=== PATIENT | female | born 1965 | race Caucasian/White ===

== ENCOUNTER 2016-08-23 15:31 | Outpatient (RCR) | payer BC | END 2016-09-12 | LOC: M PT 15:31 | PROVIDERS: ATTEND Physician Assistant Surgical | DX: Z51.89 Encounter for other specified aftercare (principal); M54.12 Radiculopathy, cervical region ==

== ENCOUNTER → 2016-09-07 | Outpatient (CLI) | payer BC ==
[2016-09-07 18:31] LABS: ANION GAP 7 MEQ/L (8-16); BLOOD UREA NITROGEN 11 MG/DL (7-18); CALCIUM LEVEL 9.3 MG/DL (8.5-10.1); CARBON DIOXIDE LEVEL 31 MEQ/L (21-32); CHLORIDE LEVEL 101 MEQ/L (98-107); CREATININE FOR GFR 0.66 MG/DL (0.55-1.02); GLOMERULAR FILTRATION RATE > 60.0 (>58); GLUCOSE, FASTING 91 MG/DL (70-105); POTASSIUM SERUM 3.9 MEQ/L (3.5-5.1); SODIUM LEVEL 139 MEQ/L (136-145)
== END | disposition home or self-care (01) ==
LOC: M LAB 17:10
PROVIDERS: ATTEND Family Medicine
DX: R10.9 Unspecified abdominal pain (principal)

== ENCOUNTER → 2016-09-14 | Outpatient (CLI) | payer BC ==
--- NOTE | 2016-09-15 03:48 | REP ---
Clinical: Flank pain. Technique: Real time melendez scale ultrasound examination of the kidneys using curved array transducer. Findings: Bilateral kidneys are normal in contour, size, echogenicity, and reniform shape without hydronephrosis, nephrolithiasis, cystic or renal mass lesions. No perinephric fluid collections are identified. Right kidney measures 11.5 x 5.0 x 4.7 cm. Left kidney measures 10.6 x 4.5 x 5.4 cm. Impression: Normal bilateral kidneys. No evidence for nephrolithiasis or hydronephrosis. Signed by Yaw Rouse MD 09/15/2016 03:39 A
--- NOTE | 2016-09-15 04:23 | REP ---
Clinical: Midline epigastric pain. Technique: Real time melendez scale evaluation using high frequency transducer. Findings: Directed ultrasound examination of the epigastric region demonstrates no obvious ventral hernia. No fluid collection or mass lesion noted. Impression: Unremarkable examination without evidence for ventral hernia. Signed by Yaw Rouse MD 09/15/2016 04:15 A
== END | disposition home or self-care (01) ==
LOC: M RAD 15:59
PROVIDERS: ATTEND Family Medicine
DX: R10.9 Unspecified abdominal pain (principal)

== ENCOUNTER 2016-09-27 14:42 | Outpatient (RCR) | payer BC | END 2016-10-10 | LOC: M PT 14:42 | PROVIDERS: ATTEND Physician Assistant Surgical | DX: Z51.89 Encounter for other specified aftercare (principal); M54.12 Radiculopathy, cervical region ==

== ENCOUNTER 2016-11-07 09:06 | Outpatient (RCR) | payer BC ==
[2016-11-11] MEDS ORDERED: HYDR25TAB PO (03:53)
[2016-11-11] MEDS ORDERED: AMLO5TAB2 PO (03:53)
[2016-11-11] MEDS ORDERED: ROBA750T4 PO (03:53)
[2016-11-11] MEDS ORDERED: LABE10TAB PO (03:53)
[2016-11-11] MEDS ORDERED: MELO15TA4 PO (03:53)
== END 2016-11-10 ==
LOC: M PT 09:06
PROVIDERS: ATTEND Physician Assistant Surgical
DX: Z51.89 Encounter for other specified aftercare (principal); M54.12 Radiculopathy, cervical region

== ENCOUNTER → 2016-11-09 | Outpatient (CLI) | payer BC ==
[~2016-11-09] MED LIST: AMLO5TAB2 PO; HYDR25TAB PO; LABE10TAB PO; MELO15TA4 PO; ROBA750T4 PO
--- NOTE | 2016-11-22 01:26 | ECWPNPC ---
PATIENT NAME: CJ COLINDRES : 1965 GENDER: FEMALE VISIT DATE: 11/09/2016 DISCHARGE DATE: 11/09/16 1638 VISIT LOCKED DATE TIME: PHYSICIAN: WENDY MANLEY RESOURCE: WENDY MANLEY REASON FOR APPOINTMENT 1. NECK/BACK HISTORY OF PRESENT ILLNESS FALL RISK SCREENING: SCREENING :NO FALLS IN THE PAST YEAR 51 Y/O FEMALE HERE PER REFERRAL OF ORTHOPEDICS IN [place].TWO YEAR HX OF LOW BACK PAIN.DENIES PRECIPITATING EVENT.NECK PAIN BEGAN IN MAY 2016.REPORTS INTERMITTENT RIGHT LEG PAIN.REPORTS INTERMITTENT BILAT.ARM PAIN AND NUMBNESS LEFT GREATER THAN RIGHT.CURRENTLY USING ROBAXIN 750MG Q6H PRN FOR SEVERE SANTIAGO THAT IS HELPFUL.ALSO USING MELOXICAM 15MG PRN .PAIN IS AGGREVATED BY LIFTING AND STANDING.PAIN IS RELIEVED SOMEWHAT WITH LAYING DOWN AND MEDICATION.CURRENTLY ATTENDING PT FOR UPPER BACK THAT IS HELPFUL.DENIES RECENT FEVER,ILLNESS OR WEIGHT GAIN/LOSS.DENIES BOWEL OR BLADDER INCONTINENCE.RATING PAIN VAS 7/10. PAIN SCREENING: PATIENT HAS A COMPLAINT OF ACUTE OR CHRONIC PAIN :YES CURRENT MEDICATIONS TAKING METHOCARBAMOL 750 MG TABLET 1 TABLET ORALLY EVERY 6 HRS TAKING LABETALOL HCL 100 MG TABLET 1 TAB ORALLY TWICE DAILY, NOTES: [facility] TAKING AMLODIPINE BESYLATE 5 MG TABLET 1 TABLET ORALLY ONCE A DAY TAKING HYDROCHLOROTHIAZIDE 25 MG TABLET 1 TABLET ORALLY ONCE A DAY TAKING MELOXICAM 15 MG TABLET 1 TABLET ORALLY ONCE A DAY DISCONTINUED HYDROCODONE-ACETAMINOPHEN 5-325 MG TABLET 1 TABLET NEEDED ORALLY EVERY 6 HRS DISCONTINUED DIAZEPAM 5 MG TABLET (SCHEDULE IV DRUG) TAKE ONE TABLET BY MOUTH EVERY 8 HOURS NEEDED FOR MUSCLE SPASM FOR UP TO 5 DOSES MAXIMUM DAILY DOSE 3 TABLETS ORAL DISCONTINUED ZOFRAN ODT 4 MG TABLET DISPERSIBLE 1 TABLET ON THE TONGUE AND ALLOW TO DISSOLVE ORALLY EVERY 8 HRS MEDICATION LIST REVIEWED AND RECONCILED WITH THE PATIENT PAST MEDICAL HISTORY HYPERTENSION GERD ARTHRITIS DEGENERATIVE DISC DISEASE LOWER LUMBAR GALL STONES ALLERGIES N.K.D.A. SURGICAL HISTORY 1998, 1990 APPENDECTOMY, LAPOROSCOPY ? TUBAL LIGATION, LYSIS OF ADHESIONS 2000 BOWEL OBSTRUCTION 1991 FAMILY HISTORY FATHER: ALIVE, STROKE, DIAGNOSED WITH STROKE MOTHER: ALIVE 2 BROTHER(S) - HEALTHY. 3 SON(S) , 4 DAUGHTER(S) - HEALTHY. SOCIAL HISTORY GENERAL: TOBACCO USE ARE YOU A:NONSMOKER BMI CARE GOAL FOLLOW-UP ABOVE NORMAL BMI FOLLOW-UPGIVING ENCOURAGEMENT TO EXERCISE ALCOHOL SCREENING DID YOU HAVE A DRINK CONTAINING ALCOHOL IN THE PAST YEAR?NO POINTS0 INTERPRETATIONNEGATIVE RECREATIONAL DRUG USE DENIES. CAFFEINE 1-2/DAY SODA. HIV / HEP-C SCREENING HIV TEST OFFERED TO PATIENT:YES DATE OFFERED:08/08/2016 TEST ACCEPTED:NO HEP-C TEST OFFERED TO PATIENT:YES DATE OFFERED:08/08/2016 REASON:PATIENT DECLINED TEST ACCEPTED:NO REASON:PATIENT DECLINED OCCUPATION: WORKS AT [employer]. DIET: REGULAR. CHEONDOISM NO SCIENTOLOGY BELIEFS THAT WOULD IMPACT HEALTH CARE. LANGUAGE HUNGARIAN. LEARNING BARRIERS / SPECIAL NEEDS BARRIERS TO LEARNING?NO HEARING IMPAIRED?NO VISION IMPAIRED?YES COGNITIVELY IMPAIRED?NO :CORRECTIVE LENSES READINESS TO LEARN?YES LEARNING PREFERENCES?NO LEARNING CAPABILITIES PRESENT?YES EMOTIONAL BARRIERS?NO ADVANCED DIRECTIVES HEALTH CARE PROXY? LORI HARTMAN [phone] HOSPITALIZATION/MAJOR DIAGNOSTIC PROCEDURE SURGERIES CHILDBIRTH REVIEW OF SYSTEMS CONSTITUTIONAL: RECENT ILLNESS DENIES . ANY CHANGE IN YOUR MEDICAL CONDITION? NO . CHILLS NO . FEVER NO, DENIES . WEIGHT LOSS DENIES . INFECTION: DO YOU HAVE NEW INFECTIONS? NO . DO YOU HAVE HISTORY OF MRSA? NO . MUSCULOSKELETAL: ANY NEW PATTERNS OF PAIN OR NUMBNESS? YES PT HAS HAD PAIN IN BACK FOR SEVERAL YEARS, HAD EPISODE IN 07/28 WHERE SHE COULD NOT LIFT YOUR ARM. NOW REPORTS INCREASING GENERAL PAIN/ MUSCLE SPASMS IN BACK. 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 . SYTEMIC LUPUS NO . JOINT PAIN DENIES . JOINT STIFFNESS DENIES . GASTROENTEROLOGY: BOWEL INCONTINENCE DENIES . ANY NEW CHANGE IN BOWEL CONTROL? NO . BARRETTS ESOPHAGUS NO . CIRRHOSIS NO . HEPATITIS NO . LIVER FAILURE NO . ACID REFLUX YES . BLOOD IN STOOL DENIES . UNEXPLAINED WEIGHT LOSS NO . GENITOURINARY: ANY NEW CHANGE IN BLADDER CONTROL? NO . IS THERE A CHANCE YOU COULD BE ? NO . HEMATOLOGY/LYMPH: DENIES . BLEEDING DISORDER DENIES . DO YOU TAKE ANY BLOOD THINNERS? (FOR EXAMPLE- COUMADIN, PLAVIX, AGGRENOX, PLATEL, PRADAXA, OR XARELTO) NO . WHEN WAS YOUR LAST DOSE? DATE: TIME: . LOW PLATELET COUNT NO . SICKLE CELL DISEASE NO . VON WILLIEBRANDS NO . FACTOR V LEIDEN NO . THALLASEMIA NO . ANEMIA NO . EASY BRUISING NO . NEUROLOGY: HAVE YOU FALLEN IN THE PAST 6 MONTHS? NO . ANY NEW EXTREMITY NUMBNESS OR WEAKNESS? NO . HEAD INJURY NO . DEMENTIA NO . CEREBRAL PALSY NO . MULTIPLE SCLEROSIS NO . DIZZINESS PT HAD EPISODE, SHE HAD TO CONVEYOR MAN WHILE DRIVING DUE TO SUDDEN BLURRY VISION, LASTED ABOUT 1 MINUTE, RESOLVED SPONTANEOUSLY . HEADACHE NO, DENIES . SEIZURES DENIES . STROKES NO . VERTIGO NO . CARDIOLOGY: DO YOU HAVE A PACEMAKER OR DEFIBRILLATOR? NO . ANGINA NO . HEART ATTACK NO . HEART SURGERY NO . CONGESTIVE HEART FAILURE/FLUID OVERLOAD NO . CHEST PAIN NO, DENIES . HIGH BLOOD PRESSURE ON MEDICATION(S) . IRREGULAR HEART BEAT NO . SHORTNESS OF BREATH DENIES . RESPIRATORY: HAVE YOU BEEN SICK IN THE PAST WEEK? NO . FEVER NO . FLU LIKE SYMPTOMS? NO . CPAP PT REPORTS SHE HAS BEEN TOLD SHE HAS BREATHING PAUSES WHILE SHE SLEEPS, WAS SCHEDULED TO HAVE A SLEEP STUDY DONE, BUT COULDN'T HAVE IT DONE BECAUSE OF INSURANCE&NBSP;. BYPAP &NBSP;&NBSP; NO&NBSP;. ASTHMA &NBSP;&NBSP; NO&NBSP;. EMPHYSEMA &NBSP;&NBSP; NO&NBSP;. CHRONIC LUNG DISEASES &NBSP;&NBSP; NO&NBSP;. SHORTNESS OF BREATH ON EXERTION &NBSP;&NBSP; NO&NBSP;. COUGH &NBSP;&NBSP; NO, DENIES&NBSP;. SHORTNESS OF BREATH &NBSP;&NBSP; DENIES&NBSP;. SNORING &NBSP;&NBSP; YES&NBSP;. INTEGUMENTARY: DO YOU HAVE ANY RASHES OR OPEN SORES? NO . ALLERGIC/IMMUNO: ARE YOU ALLERGIC TO SHELLFISH OR IV DYE? NO . ANY NEW ALLERGIES? NO . PSYCHIATRIC: DO YOU HAVE THOUGHTS OF HURTING YOURSELF OR SOMEONE ELSE? NO . ARE YOU ABUSED, NEGLECTED, OR IN AN UNSAFE ENVIRONMENT? NO . ENDOCRINOLOGY: THYROID DISEASE DENIES . ARE YOU DIABETIC? NO . DIABETES DENIES . THYROID DISORDER NO . OTHER: DO YOU NEED ANY PRESCRIPTIONS? NO . IF YES, PLEASE LIST: ____ . ANY NEW PROBLEMS WITH YOUR MEDICATIONS? NO . WHEN DID YOU LAST EAT? ____ . WHEN DID YOU LAST DRINK? ____ . WHAT DID YOU LAST DRINK? ____ . NAME OF PERSON DRIVING YOU HOME? ____ . DO YOU HAVE ANY OTHER QUESTIONS OR CONCERNS NO . HEENT: CHANGE IN VISION DENIES . LOSS OF HEARING DENIES . TROUBLE SWALLOWING DENIES . PSYCHOLOGY: ANXIETY DENIES . DEPRESSION DENIES . UROLOGY: URINARY INCONTINENCE DENIES . BLOOD IN URINE DENIES . REVIEWED BY: PROVIDER: WENDY LIN . VITAL SIGNS WT 245.8 LBS, HT 61 IN, BMI 46.44 INDEX, BP 139/85 MM HG, HR 76 /MIN, RR 18 /MIN, TEMP 97.9 F, OXYGEN SAT % 95%, SAFE IN ENV? (Y/N) YES, NA INITIALS SC 15:47, REVIEWED BY: CYDNEY. EXAMINATION GENERAL EXAMINATION: HEENT:HEAD:, NORMOCEPHALIC, EYES:, EYES NORMAL, NOSE:, NOSE CLEAR, THROAT: NORMAL. LUNGS:LUNG SOUNDS ARE CLEAR. HEART:HEART RATE REGULAR. ABDOMEN:SOFT AND NOT TENDER, NON-DISTENDED. MUSCULOSKELETAL:*. LUMBAR SACRAL SPINEMUSCLE STRENGTH TESTING 5/5 BLE. +FOR PAIN OVER L/S SPINE. + FOR PAIN OVER L/S PARASPINALS. THORACIC SPINENEGATIVE FOR PAIN WITH PALPATION OF THORACIC SPINE. NEGATIVE FOR PAIN WITH PALPATION OF THORACIC PARASPINAL. CERVICALNEGATIVE FOR PAIN WITH PALPATION OF CERVICAL SPINE. NEGATIVE FOR PAIN WITH PALPATION OF CERVICAL PARASPINALS. NEGATIVE FOR PAIN WITH PALPATION OF TRAPEZIUS BILAT. SKIN:NORMAL, NO RASH. NEUROLOGIC EXAM:ALERT AND ORIENTED X 3, DTRS 1-2+ IN ALL 4 EXTREMITIES, DENIES UPPER EXTREMETIES SENSORY LOSS, DENIES LOWER EXTREMETIES SENSORY LOSS. ASSESSMENTS SACROILIAC JOINT PAIN - M53.3 (PRIMARY) CERVICALGIA - M54.2 LUMBAGO OF LUMBAR REGION WITH SCIATICA - M54.40 TREATMENT OTHERS START CYMBALTA CAPSULE DELAYED RELEASE PARTICLES, 30 MG, 1 CAPSULE, ORALLY, DAILY, 30 DAY(S), 30 CAPSULE, REFILLS 2 CLINICAL NOTES: CONTINUE PT, PATIENT WAS ADVISED TO START A WALKING PROGRAM TO STRENGTHEN LUMBAR PARASPINAL MUSCLES AND IMPROVE MOBILITY. THEY WERE ADVISED THAT THIS WILL IMPROVE WEIGHT LOSS AND ALSO DEPRESSION/FIBROMYALGIA SYMPTOMS. ADVISED TO WALK 10 MINUTES EVERY OTHER DAY ON A FLAT SURFACE. EMPHASIZED THE IMPORTANCE OF DOING THIS CONSISTANTLY AND NOT SPORATICALLY TO AVOID INJURY. STRONG ADVISED NOT TO DO MORE THAN 10 MINUTES EVERY OTHER DSY FOR THE FIRST 4 WEEKS.PATIENT CALLED OFFICE TODAY AND WANTS TO TRIAL CYMBALTA 30MG DSILY WE DISCUSSED AT CONSULT DOPPWICHS-[id number]. PROCEDURE CODES FA211 ESTABILISHED PATIENT [facility] CHARGE DISPOSITION & COMMUNICATION FOLLOW UP 6 WEEKS ELECTRONICALLY SIGNED BY RILEY MILLAN ON 11/20/2016 AT 05:54 PM EDT DISCLAIMER : THIS IS A VISIT SUMMARY EXTRACTED FROM THE [employer] CHART. IT IS NOT A COPY OF THE [employer] PROGRESS NOTE. ANTOINETTE
== END ==
LOC: M PAIN 15:20
PROVIDERS: ATTEND Nurse Practitioner Family
DX: Z09 Encounter for follow-up examination after completed treatment for conditions other than malignant neoplasm (principal); M53.3 Sacrococcygeal disorders, not elsewhere classified; M54.2 Cervicalgia; M54.40 Lumbago with sciatica, unspecified side; I10 Essential (primary) hypertension; K21.9 Gastro-esophageal reflux disease without esophagitis; M19.90 Unspecified osteoarthritis, unspecified site; M51.36 Other intervertebral disc degeneration, lumbar region; Z87.19 Personal history of other diseases of the digestive system; Z79.899 Other long term (current) drug therapy; Z79.1 Long term (current) use of non-steroidal anti-inflammatories (NSAID)

== ENCOUNTER 2017-01-16 18:29 | Emergency (ER) | payer BC ==
[~2017-01-16] VITALS: Ht 154.9 cm; Wt 106.6 kg
[2017-01-16] MEDS ORDERED: PRED20TA PO (19:56)
--- NOTE | 2017-01-16 20:00 | REPUSA ---
Clinical history: Pain, swelling. Findings: The right common femoral, superficial femoral, popliteal, and other deep venous structures compress normally and demonstrate normal color Doppler flow. Normal venous waveforms with augmentatio n are seen. Impression: No evidence of deep vein thrombosis in the right femoral popliteal venous system.
[2017-01-16 20:11] VITALS: BP 158/100
== END 2017-01-16 20:13 | disposition home or self-care (01) ==
LOC: M ED 19:09
DX: M54.31 Sciatica, right side (principal); M51.36 Other intervertebral disc degeneration, lumbar region; I10 Essential (primary) hypertension; Z79.899 Other long term (current) drug therapy

== ENCOUNTER → 2017-01-18 | Outpatient (CLI) | payer BC ==
[~2017-01-18] MED LIST changes: +PRED20TA PO
--- NOTE | 2017-01-19 02:03 | REP ---
Clinical: Pain. Technique: AP, lateral, bilateral oblique, and sunrise views of the right knee. Findings: Early advanced tricompartmental osteoarthritic degenerative changes are appreciated including diffuse cortical irregularity, osteophytosis, increased sclerosis along the posterior patellar margin, tibiofemoral and predominantly lateral patellofemoral joint space narrowing, and soft tissue swelling. No definite effusion. No acute fracture dislocation. Impression: Early advanced tricompartmental osteoarthritic degenerative changes. Signed by Yaw Rouse MD 01/19/2017 01:55 A
== END ==
LOC: M RAD 03:30
PROVIDERS: ATTEND Family Medicine
DX: M17.11 Unilateral primary osteoarthritis, right knee (principal)

== ENCOUNTER 2017-05-10 06:49 | Emergency (ER) | payer BC ==
[~2017-05-10] VITALS: Ht 154.9 cm; Wt 106.8 kg
[2017-05-10 07:50] LABS: BASO % 0.2 % (0.0-1.0); EOS # 0.2 10^3/uL (0.0-0.50); EOS % 1.7 % (0.0-3.0); IMMATURE GRANULOCYTE % 0.2 % (0-0); LYMPH # 2.4 10^3/uL (1.5-4.5); LYMPH % 25.1 % (24.0-44.0); MEAN CORPUSCULAR HGB CONC 34.3 g/dl (32.0-36.5); MEAN CORPUSCULAR VOLUME 87.4 fl (80.0-96.0); MONO # 0.9 10^3/uL (0.0-0.8); MONO % 9.6 % (0.0-5.0); NEUTROPHILS % 63.2 % (36.0-66.0); PLATELET COUNT, AUTOMATED 270 10^3/uL (150-450); RED CELL DISTRIBUTION WIDTH 12.5 % (11.5-14.5); WHITE BLOOD COUNT 9.5 10^3/uL (4.0-10.0)
--- NOTE | 2017-05-10 08:05 | REP ---
Portable chest, 07:20 a.m., AP view, patient sitting: Comparison is 11/11/2016. The lung dias are clear. The cardiac size is normal. The frances, mediastinum, and bony thorax are unremarkable. Impression: Negative portable chest. Signed by Alton Hutton MD 05/10/2017 07:57 A
[2017-05-10 08:25] LABS: ALBUMIN 3.7 GM/DL (3.2-5.2); ALBUMIN/GLOBULIN RATIO 0.93 (1.00-1.93); ALKALINE PHOSPHATASE 79 U/L (45-117); ALT/SGPT 25 U/L (12-78); ANION GAP 8 MEQ/L (8-16); AST/SGOT 13 U/L (15-37); BILIRUBIN,DIRECT 0.3 MG/DL (0.0-0.2); BILIRUBIN,TOTAL 0.9 MG/DL (0.2-1.0); BLOOD UREA NITROGEN 17 MG/DL (7-18); CALCIUM LEVEL 9.2 MG/DL (8.5-10.1); CARBON DIOXIDE LEVEL 29 MEQ/L (21-32); CHLORIDE LEVEL 99 MEQ/L (98-107); CREATININE FOR GFR 0.69 MG/DL (0.55-1.02); GLOMERULAR FILTRATION RATE > 60.0 (>58); GLUCOSE, FASTING 93 MG/DL (70-105); POTASSIUM SERUM 3.6 MEQ/L (3.5-5.1); SODIUM LEVEL 136 MEQ/L (136-145); TOTAL PROTEIN 7.7 GM/DL (6.4-8.2)
[2017-05-10] MEDS ORDERED: ISOVUE-370 76% 100ML VIAL (Q9967) As Ordered ONE (08:36)
--- NOTE | 2017-05-10 09:51 | REP ---
CT ANGIOGRAM OF THE CHEST: TECHNIQUE: Axial contrast enhanced images from the thoracic inlet to the upper abdomen using 100 mL Isovue 370 intravenous contrast material with multiplanar reformations. COMPARISON: 06/28/2016. There is no CT evidence of pulmonary embolism. There is no thoracic aortic aneurysm or dissection. No mediastinal or hilar adenopathy is seen. The heart is not enlarged. There is no pleural or pericardial effusion. A couple of calcified granulomas are seen in the left lung. Minimal dependent atelectatic changes are seen in the lungs. In the visualized portions of the upper abdomen, a 3 cm gallstone is seen in the gallbladder. There are no other significant abnormalities. IMPRESSION: No CT evidence of pulmonary embolism or significant infiltrate. Gallstone in the gallbladder. Signed by Alton Lundberg MD 05/10/2017 07:50 P
--- NOTE | 2017-05-10 12:14 | REP ---
RIGHT UPPER QUADRANT ULTRASOUND: Real-time sonographic evaluation of the right upper quadrant performed. The gallbladder demonstrates a large stone without gallbladder wall thickening, pericholecystic fluid or intrahepatic or extrahepatic biliary dilatation. The common bile duct measures 6 mm. There is diffuse fibrofatty infiltration of the liver with no gross mass. The study is limited due to patient body habitus. The pancreas is not well seen. Right kidney demonstrates no hydronephrosis with normal size at 10.9 cm in length. IMPRESSION: Large gallstone in the gallbladder without gallbladder wall thickening, pericholecystic fluid or biliary dilatation. Diffuse fibrofatty infiltration of the liver. Signed by Alton Lundberg MD 05/10/2017 07:51 P
[2017-05-10 12:44] VITALS: BP 185/79
--- NOTE | 2017-05-10 20:45 | ECGEPIP ---
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
== END 2017-05-10 13:16 | disposition home or self-care (01) ==
LOC: EDBD 06:49 → M ED 06:49
DX: R10.9 Unspecified abdominal pain (principal); K80.20 Calculus of gallbladder without cholecystitis without obstruction; I10 Essential (primary) hypertension; Z87.19 Personal history of other diseases of the digestive system
CPT/HCPCS: 71010; 71275; 76705; 80048; 80076; 82550; 82553; 83690; 83880; 85025; 93005; 93041; 94760; 99285; Q9967

== ENCOUNTER 2017-07-20 07:53 | Day surgery (SDC) | payer BC ==
[~2017-07-20] VITALS: Ht 154.9 cm; Wt 108.0 kg
[2017-07-20] VITALS (8 sets, daily range): BP systolic 114–177; BP diastolic 63–84
[~2017-07-20 07:53] MED LIST changes: +HYDR-3713 PO
[2017-07-20] MEDS ORDERED: LIDOCAINE 1% MDV 20ML VIAL SQ PRN (08:00)
[2017-07-20] MEDS ORDERED: LR 1,000 ML IV ONE (08:00)
[2017-07-20] MEDS ORDERED: ROCURONIUM BROMIDE 50 MG/5 ML VIAL As Ordered ONE (08:59)
[2017-07-20] MEDS ORDERED: fentaNYL 250 MCG/5 ML INJECTION (J3010) As Ordered ONE (08:59)
[2017-07-20] MEDS ORDERED: LIDOCAINE 2% INJ 100 MG/5 ML SDV (FOR ANES.) As Ordered ONE (08:59)
[2017-07-20] MEDS ORDERED: MIDAZOLAM INJ 2 MG/2 ML VIAL (J2250) As Ordered ONE (08:59)
[2017-07-20] MEDS ORDERED: PROPOFOL 200 MG/20 ML VIAL As Ordered ONE (08:59)
[2017-07-20] MEDS ORDERED: BUPIVACAINE/EPIN 0.5% 30 ML VIAL As Ordered ONE (09:15)
[2017-07-20] MEDS ORDERED: LABETALOL 100 MG TAB PO ONE (09:30)
[2017-07-20] MEDS ORDERED: dexameTHASONE 4 MG/ML 1ML VIAL (J1100) As Ordered ONE ×2 (10:03→10:05)
[2017-07-20] MEDS ORDERED: ONDANSETRON 4MG/2ML VIAL (J2405) As Ordered ONE ×2 (10:03→10:05)
[2017-07-20] MEDS ORDERED: GLYCOPYRROLATE INJ 0.2 MG/ML 2 ML VIAL As Ordered ONE (10:05)
[2017-07-20] MEDS ORDERED: KETOROLAC 60 MG/2 ML VIAL (J1885) As Ordered ONE (10:05)
[2017-07-20] MEDS: fentaNYL 100 MCG/2 ML INJECTION (J3010) IV PRN ×3 (11:00→11:55)
[2017-07-20] MEDS ORDERED: HYDROmorphone HCL 1 MG/ML SYRINGE (J1170) IV PRN ×2 (11:00→13:00)
[2017-07-20] MEDS ORDERED: ONDANSETRON 4MG/2ML VIAL (J2405) IV PRN ×2 (11:00→13:00)
[2017-07-20] MEDS ORDERED: PERCOCET 5MG/325MG TAB PO PRN ×2 (11:00→13:00)
[2017-07-20] MEDS ORDERED: LR 1,000 ML IV SCH ×2 (11:00→13:00)
[2017-07-20] MEDS ORDERED: METOCLOPRAMIDE INJ 10MG/2ML VIAL (J2765) As Ordered ONE (11:30)
[2017-07-20] MEDS ORDERED: METOCLOPRAMIDE INJ 10MG/2ML VIAL (J2765) IV PRN ×2 (11:45→13:00)
[2017-07-20] MEDS ORDERED: fentaNYL 100 MCG/2 ML INJECTION (J3010) IV PRN (13:00)
[2017-07-20] MEDS: NORCO, ANEXSIA 5/325MG TABLET (HYDROcodone/ACETAMINOPHEN) PO PRN (18:12)
[2017-07-21 02:00] VITALS: BP 124/67
[2017-07-21 06:00] VITALS: BP 127/69
[2017-07-21 10:00] VITALS: BP 120/67
[2017-07-21] MEDS: NORCO, ANEXSIA 5/325MG TABLET (HYDROcodone/ACETAMINOPHEN) PO PRN (10:18)
[2017-07-21 14:00] VITALS: BP 121/56
--- NOTE | 2017-07-23 07:28 | RO ---
DATE OF PROCEDURE: 07/20/2017 PREOPERATIVE DIAGNOSIS: Symptomatic cholelithiasis. POSTOPERATIVE DIAGNOSIS: Symptomatic cholelithiasis. PROCEDURE: Laparoscopic cholecystectomy. SURGEON: Alton Sheffield DO MANUFACTURING SYSTEMS ENGINEER: None. ANESTHESIA: General. ESTIMATED BLOOD LOSS: 5 mL. COMPLICATIONS: None. INDICATIONS FOR PROCEDURE: The patient is 52-year-old female who presents with signs and symptoms consistent with a symptomatic cholelithiasis. Recommendation was to proceed with laparoscopic possible open cholecystectomy. Risks and benefits of the procedure, not limited to but including bleeding, infection, hernia formation, damage to surrounding structures, and need for further surgery were discussed in detail with the patient. Informed consent was obtained and the procedure was planned. PROCEDURE: The patient was brought back to operating room 3. After sufficient sedation, the abdomen was sterilely prepped and draped. Next, a time out was done to confirm proper patient and proper procedure. Following that, a 5 mm incision was made in the left lower quadrant, Veress needle was inserted and the abdomen was insufflated to 15 mmHg. Next, the Veress needle was removed and a 5 mm OptiView port was used in left lower quadrant to gain access. Once the abdomen was examined, it was examined for adhesions since she had had multiple previous surgeries. There were adhesions in the midline abdomen inferior to umbilicus, nothing superior to that. So, another 5 mm port was placed superior to umbilicus in the midline followed by an 11 port subxiphoid, two 5 mm ports in the right upper quadrant. The fundus of the gallbladder was easily identified. It was grasped, elevated up towards the right shoulder. The cystic duct and cystic artery were carefully dissected free using a combination of blunt and sharp dissection. Once they were both clearly identified, they are both doubly clipped and cut. The gallbladder was then removed from gallbladder fossa using electrocautery. It was then brought out through the subxiphoid port site in a 10 mm EndoCatch bag. The abdomen was then examined one last time to confirm hemostasis. The skin incisions were closed with #4-0 Vicryl subcuticular sutures. The abdomen was then cleaned and dried. Steri-Strips, 4x4 and tape were applied thus ending procedure.
== END 2017-07-21 15:05 | disposition home or self-care (01) ==
LOC: M SDC 07:53 → M MS5PR 12:25 → M SDC 07-21 15:05
PROVIDERS: ATTEND Surgery
DX: K80.10 Calculus of gallbladder with chronic cholecystitis without obstruction (principal); I10 Essential (primary) hypertension; M48.00 Spinal stenosis, site unspecified; M12.9 Arthropathy, unspecified; M54.2 Cervicalgia; Z98.51 Tubal ligation status; Z79.899 Other long term (current) drug therapy
CPT/HCPCS: 47562; 88304; 96374; 96375; J0690; J1100; J1885; J2250; J2405; J2765; J3010

== ENCOUNTER 2017-08-08 07:05 | Day surgery (SDC) | payer BC ==
[2017-08-08] MEDS: NS 1,000 ML IV (07:15)
[2017-08-08] MEDS ORDERED: PROPOFOL 200 MG/20 ML VIAL As Ordered ×2 (07:20→08:00)
[2017-08-08] MEDS ORDERED: LIDOCAINE 2% INJ 100 MG/5 ML SDV (FOR ANES.) As Ordered (07:20)
[2017-08-08] MEDS ORDERED: ONDANSETRON 4MG/2ML VIAL (J2405) As Ordered (08:26)
[2017-08-08] MEDS ORDERED: METOCLOPRAMIDE INJ 10MG/2ML VIAL (J2765) As Ordered (08:26)
== END 2017-08-08 09:06 | disposition home or self-care (01) ==
LOC: M OPP 07:05
DX: Z12.11 Encounter for screening for malignant neoplasm of colon (principal); K64.0 First degree hemorrhoids; I10 Essential (primary) hypertension; R10.12 Left upper quadrant pain; M19.90 Unspecified osteoarthritis, unspecified site; M48.00 Spinal stenosis, site unspecified; M51.9 Unspecified thoracic, thoracolumbar and lumbosacral intervertebral disc disorder; Z87.19 Personal history of other diseases of the digestive system; Z79.899 Other long term (current) drug therapy
CPT/HCPCS: G0121

== ENCOUNTER 2017-11-08 10:52 | Emergency (ER) | payer OTHER, BC ==
[2017-11-08] MEDS: KETOROLAC 60 MG/2 ML VIAL (J1885) IM ×2 (12:00)
== END 2017-11-08 12:09 | disposition home or self-care (01) ==
LOC: M ED 10:52
DX: S39.012A Strain of muscle, fascia and tendon of lower back, initial encounter (principal); X50.9XXA Other and unspecified overexertion or strenuous movements or postures, initial encounter; Y92.89 Other specified places as the place of occurrence of the external cause; Y93.F9 Activity, other caregiving; Z79.899 Other long term (current) drug therapy
CPT/HCPCS: J1885

== ENCOUNTER → 2017-12-27 | Outpatient (CLI) | payer BC | LOC: M RAD 10:45 | DX: N95.0 Postmenopausal bleeding (principal) | CPT/HCPCS: 76856 ==

== ENCOUNTER 2018-03-15 11:24 | Day surgery (SDC) | payer BC ==
[~2018-03-15 11:24] MED LIST changes: -AMLO5TAB2 PO; -HYDR-3713 PO; -HYDR25TAB PO; +KETOROLAC 60 MG/2 ML VIAL (J1885) As Ordered; -LABE10TAB PO; +LIDOCAINE 2% INJ 100 MG/5 ML SDV (FOR ANES.) As Ordered; -MELO15TA4 PO; +MIDAZOLAM INJ 2 MG/2 ML VIAL (J2250) As Ordered; +ONDANSETRON 4MG/2ML VIAL (J2405) As Ordered; -PRED20TA PO; +PROPOFOL 200 MG/20 ML VIAL As Ordered; -ROBA750T4 PO; +dexameTHASONE 4 MG/ML 1ML VIAL (J1100) As Ordered; +fentaNYL 100 MCG/2 ML INJECTION (J3010) As Ordered
[2018-03-15] MEDS: LR 1,000 ML IV ×2 (12:21)
[2018-03-15 12:25] LABS: HEMOGLOBIN 15.2 g/dl (12.0-15.5); MEAN CORPUSCULAR HGB CONC 34.5 g/dl (32.0-36.5); MEAN CORPUSCULAR VOLUME 86.8 fl (80.0-96.0); PLATELET COUNT, AUTOMATED 267 10^3/uL (150-450); RED BLOOD COUNT 5.07 10^6/uL (4.00-5.40); RED CELL DISTRIBUTION WIDTH 12.9 % (11.5-14.5); WHITE BLOOD COUNT 8.4 10^3/uL (4.0-10.0)
[2018-03-15] MEDS ORDERED: LR 1,000 ML IV ×4 (13:45)
[2018-03-15] MEDS ORDERED: ACETAMINOPHEN 500 MG TAB PO ×2 (13:45)
[2018-03-15] MEDS ORDERED: fentaNYL 100 MCG/2 ML INJECTION (J3010) IV ×2 (13:45)
[2018-03-15] MEDS: ONDANSETRON 4MG/2ML VIAL (J2405) IV ×2 (13:50)
[2018-03-15] MEDS: PERCOCET 5MG/325MG TAB PO ×2 (13:51)
== END 2018-03-15 16:45 | disposition home or self-care (01) ==
LOC: M SDC 11:24
DX: N95.0 Postmenopausal bleeding (principal); I10 Essential (primary) hypertension; Z79.899 Other long term (current) drug therapy
CPT/HCPCS: 58558

== ENCOUNTER 2018-07-28 16:59 | Emergency (ER) | payer BC, OTHER ==
[~2018-07-28] VITALS: Ht 154.9 cm; Wt 107.7 kg
[~2018-07-28 16:59] MED LIST changes: +ACET1TAB55 PO; +AMLO5TAB6 PO; +HYDR-3713 PO; +HYDR25TAB PO; +IBUP-1022 PO; -KETOROLAC 60 MG/2 ML VIAL (J1885) As Ordered; +LABE10TAB PO; -LIDOCAINE 2% INJ 100 MG/5 ML SDV (FOR ANES.) As Ordered; +MELO15TA28 PO; -MIDAZOLAM INJ 2 MG/2 ML VIAL (J2250) As Ordered; -ONDANSETRON 4MG/2ML VIAL (J2405) As Ordered; +PRED20TA PO; -PROPOFOL 200 MG/20 ML VIAL As Ordered; +ROBA500T PO; +ROBA750T4 PO; -dexameTHASONE 4 MG/ML 1ML VIAL (J1100) As Ordered; -fentaNYL 100 MCG/2 ML INJECTION (J3010) As Ordered
[2018-07-28] MEDS ORDERED: KETOROLAC 30 MG/ML VIAL (J1885) IV ONE (17:30)
[2018-07-28] MEDS ORDERED: NS 1,000 ML IV ONE (17:30)
[2018-07-28 17:37] LABS: URINE PREG TEST NEGATIVE (NEGATIVE)
[2018-07-28 18:03] LABS: BASO % 0.5 % (0.0-1.0); EOS # 0.2 10^3/uL (0.0-0.50); HEMATOCRIT 43.8 % (36.0-47.0); HEMOGLOBIN 15.1 g/dl (12.0-15.5); LYMPH # 2.4 10^3/uL (1.5-4.5); LYMPH % 29.7 % (24.0-44.0); MEAN CORPUSCULAR HEMOGLOBIN 30.1 pg (27.0-33.0); MEAN CORPUSCULAR HGB CONC 34.5 g/dl (32.0-36.5); MEAN CORPUSCULAR VOLUME 87.3 fl (80.0-96.0); MONO # 0.8 10^3/uL (0.0-0.8); MONO % 9.8 % (0.0-5.0); NEUTROPHILS # 4.6 10^3/uL (1.8-7.7); NEUTROPHILS % 57.9 % (36.0-66.0); PLATELET COUNT, AUTOMATED 263 10^3/uL (150-450); RED BLOOD COUNT 5.02 10^6/uL (4.00-5.40); WHITE BLOOD COUNT 7.9 10^3/uL (4.0-10.0)
--- NOTE | 2018-07-28 18:19 | REPVR ---
EXAM: CT Abdomen and Pelvis Without Contrast EXAM DATE/TIME: 07/28/2018 5:32 PM CLINICAL HISTORY: 53 years old, female; Pain; Abdominal pain; Flank; Left; Additional info: L flank pain, dark urine TECHNIQUE: Axial computed tomography images of the abdomen and pelvis without contrast. All CT scans at this facility use at least one of these dose optimization techniques: automated exposure control; mA and/or kV adjustment per patient size (includes targeted exams where dose is matched to clinical indication); or iterative reconstruction. Coronal and sagittal reformatted images were created and reviewed. COMPARISON: US PELVIC NON-OB COMPLETE 12/27/2017 11:07 AM FINDINGS: Lower thorax: Calcified granuloma left lower lobe. ABDOMEN: Liver: Normal. No mass. Gallbladder and bile ducts: There has been a cholecystectomy. Pancreas: Normal. No ductal dilation. Spleen: Normal. No splenomegaly. Adrenals: Normal. No mass. Kidneys and ureters: Normal. No hydronephrosis. Stomach and bowel: Short segment focus of pericolonic inflammation in the left mid colon may be secondary to diverticulitis although there is a paucity of diverticuli the left colon. Other considerations would include short segment colitis. Umbilical hernia contains a loop of small bowel. No incarceration. Appendix: No evidence of appendicitis. PELVIS: Bladder: Unremarkable as visualized. Reproductive: Unremarkable as visualized. ABDOMEN and PELVIS: Intraperitoneal space: Normal. No free air. No significant fluid collection. Bones/joints: The spine demonstrates mild degenerative changes at multiple levels. Mild anterolisthesis of L5 on S1. Transitional vertebra at S1. Soft tissues: Unremarkable. Vasculature: The aorta demonstrates mild atherosclerotic calcification. Lymph nodes: Normal. No enlarged lymph nodes. IMPRESSION: 1. There has been a cholecystectomy. 2. Short segment focus of pericolonic inflammation in the left mid colon may be secondary to diverticulitis although there is a paucity of diverticuli the left colon. Other considerations would include short segment colitis. 3. Umbilical hernia contains a loop of small bowel. No incarceration. Electronically signed by: Isidoro Herr On 07/28/2018 18:19:11 PM
[2018-07-28 18:22] LABS: ALBUMIN 3.3 GM/DL (3.2-5.2); ALT/SGPT 28 U/L (12-78); BILIRUBIN,DIRECT 0.2 MG/DL (0.0-0.2); BILIRUBIN,TOTAL 0.7 MG/DL (0.2-1.0); BLOOD UREA NITROGEN 16 MG/DL (7-18); CALCIUM LEVEL 8.9 MG/DL (8.5-10.1); CARBON DIOXIDE LEVEL 31 MEQ/L (21-32); CHLORIDE LEVEL 102 MEQ/L (98-107); CREATININE FOR GFR 0.76 MG/DL (0.55-1.30); GLOMERULAR FILTRATION RATE > 60.0 (>51); GLUCOSE, FASTING 111 MG/DL (70-100); LIPASE 117 U/L (73-393); POTASSIUM SERUM 3.5 MEQ/L (3.5-5.1); SODIUM LEVEL 139 MEQ/L (136-145); TOTAL PROTEIN 8.1 GM/DL (6.4-8.2)
[2018-07-28] MEDS ORDERED: FLAG500T PO (19:10)
[2018-07-28] MEDS ORDERED: NORCOTAB PO (19:10)
[2018-07-28] MEDS ORDERED: CIPR-249 PO (19:10)
[2018-07-28] MEDS ORDERED: NORCO 5/325MG TABLET (BULK FOR ED) PO ONE (19:15)
[2018-07-28] MEDS ORDERED: metroNIDAZOLE (FLAGYL) 500 MG TAB PO ONE (19:15)
[2018-07-28] MEDS ORDERED: CIPROFLOXACIN 500 MG TAB PO ONE (19:15)
[2018-07-28 19:17] VITALS: BP 121/58
== END 2018-07-28 19:42 | disposition home or self-care (01) ==
LOC: M ED 16:59
DX: K57.32 Diverticulitis of large intestine without perforation or abscess without bleeding (principal); I10 Essential (primary) hypertension; Z87.440 Personal history of urinary (tract) infections; K42.0 Umbilical hernia with obstruction, without gangrene; Z79.899 Other long term (current) drug therapy
CPT/HCPCS: 74176; 80048; 80076; 81001; 83690; 84703; 85025; 96361; 96374; 99284; J1885

== ENCOUNTER 2018-09-04 04:59 | Emergency (ER) | payer BC, OTHER ==
[~2018-09-04] VITALS: Ht 154.9 cm; Wt 106.8 kg
[~2018-09-04 04:59] MED LIST changes: +CIPR-249 PO; +FLAG500T PO; +NORCOTAB PO
[2018-09-04] MEDS ORDERED: PERCOCET 5MG/325MG TAB PO ONE (06:15)
--- NOTE | 2018-09-04 06:56 | REPVR ---
EXAM: US Right Duplex Lower Extremity Veins, Limited EXAM DATE/TIME: 09/04/2018 6:39 AM CLINICAL HISTORY: 53 years old, female; Pain; Other: Knee; Additional info: Extremity pain TECHNIQUE: Real-time Duplex ultrasound of the Right Lower Extremity with 2-D melendez scale, color Doppler flow and spectral waveform analysis. Limited exam was focused on the right lower extremity veins. COMPARISON: US Duplex, Ext,LOWER veins,unilat 01/16/2017 7:28 PM FINDINGS: Right deep veins: Unremarkable. The common femoral, femoral, proximal profunda femoral and popliteal veins are patent without thrombus. Normal compressibility, augmentation response and Doppler waveforms. Right superficial veins: Unremarkable. Saphenofemoral junction is patent without thrombus. Soft tissues: Unremarkable. IMPRESSION: No acute findings. No evidence of deep vein thrombosis. Electronically signed by: Tyrese Vela On 09/04/2018 06:55:53 AM
[2018-09-04] MEDS ORDERED: NAPR-50 PO (07:02)
[2018-09-04] MEDS ORDERED: ROBA500T PO (07:02)
[2018-09-04] MEDS ORDERED: METHOCARBAMOL 750 MG TAB PO ONE (07:15)
[2018-09-04] MEDS ORDERED: NAPROXEN 250 MG TAB PO ONE (07:15)
[2018-09-04 08:48] VITALS: BP 163/77
== END 2018-09-04 08:50 | disposition home or self-care (01) ==
LOC: M ED 04:59
DX: M79.604 Pain in right leg (principal)